=== PATIENT | female | born 1960 | race American Indian/Alaskan Native ===

== ENCOUNTER 2016-05-02 07:29 | Outpatient (CLI) | payer MEDICAID ==
[2016-05-02 08:51] LABS: Blood Urea Nitrogen 9 mg/dL (7-17)
[2016-05-02] MEDS ORDERED: NACL ONE (09:31)
--- NOTE | 2016-05-02 12:39 | Magnetic Resonance Report ---
MRI BRAIN WITH AND WITHOUT CONTRAST INDICATION: Malignant neoplasm of right breast. Headaches. COMPARISON: None similar. FINDINGS: Multiplanar and multisequence MRI of the brain performed before and after 15 ml MultiHance intravenously demonstrate symmetric and normal ventricles and sulci. Mild periventricular and few white matter FLAIR and T2 weighted hyperintensities. No acute infarct, hemorrhage, mass effect or midline shift. No abnormal intra-axial masses or fluid collections. Normal major intracranial vascular flow-voids. No suspicious abnormal enhancement. Number posterior fossa with symmetric 7th and 8th nerve complexes. Preserved basilar cisterns. Normal eye globes. Slight ethmoid sinusitis. Clear remainder imaged paranasal sinuses and mastoid air cells. Partially empty sella. Normal remainder midline appearance without evidence of Chiari malformation. Patchy imaged cervical spine marrow signal. Subtle ventral epidural signal about C4 and C5 as on sagittal series 3, image 10 may represent possible disc herniation, amongst others. Approximately 2 x 1.0 cm adenoids may also be directly visualized. CONCLUSION: 1. No acute intracranial MRI abnormality with age-appropriate atrophy, microvascular changes and few other incidental findings, as above. 2. MR appearance suspicious for cervical spine diffuse metastatic involvement. Further C4-C5 level assessment may also be better achieved with dedicated cervical spine MRI, as warranted. Thank you for the opportunity to participate in this patient's care.
--- NOTE | 2016-05-02 14:23 | Cat Scan Report ---
CT CHEST, ABDOMEN AND PELVIS WITH CONTRAST INDICATION: Malignant neoplasm of right breast. COMPARISON: 01/12/2016. FINDINGS: Chest, abdomen and pelvis CT performed following oral contrast and intravenous administration of 100 cc of Omnipaque 300. CHEST: Stable heart size and great vessels, including mild pulmonary arterial hypertension. Left upper anterior chest wall port tip extending to the right atrium again creates some streak artifact. No pericardial effusion. Approximately 1.4 cm round soft tissue density in the left axilla, axial image 50, series 2 may represent a new lymph node enlargement. No other definite size significant adenopathy. Patent central airway. Unremarkable thyroid. Breast skin thickening again noted, now more appearing bilateral. Mild bibasilar scarring and slight increased AP chest diameter again noted. Small spiculated right lower lobe density medially is stable to slightly smaller at approximately 0.8 cm, axial image 131, series 2, indicating a benign process. Subtle diaphragmatic soft tissue thickening, right more than left as on axial series 2, images 150-180 though appears new/more pronounced, including subtle crescentic 4.2 x 0.7 cm hypodensity posterior to the right hepatic lobe, axial image 160. No significant pleural effusions, though trace right pleural fluid not entirely excluded. Nonspecific distal esophageal wall thickening, not excluded for gastroesophageal reflux and/or hiatal hernia, amongst others. ABDOMEN: At least 2 subtle hepatic new hypodense lesions worrisome for metastases as measuring 4 mm in the right hepatic lobe anteriorly, axial image 247, series 2 and approximately 5 mm in the inferior right hepatic lobe peripherally, image 297, amongst others. Patent veins. Grossly unremarkable remainder liver, spleen, gallbladder, pancreas, adrenals, nonaneurysmal abdominal aorta with few atherosclerotic calcifications and IVC. Non-hydronephrotic kidneys with stable 1.6 cm left upper renal pole cyst. No ascites or size significant adenopathy. Opacified GI tract nonobstructive. Normal appendix. Mild to moderate ascending colon stool/possible constipation. Stable fat containing umbilical hernia with a transverse neck of 1.6 cm as also a supraumbilical containing fat hernia with a neck of 1.4 cm, axial image image 347, series 2. PELVIS: Uterus, adnexa/ovaries and the urinary bladder within normal limits. Mild rectosigmoid stool. No free fluid or size significant adenopathy. Extensive diffuse skeletal metastases again noted as also lower thoracic and upper lumbar superior endplate Schmorl's node/depressions, disc degeneration/vacuum phenomenon at few levels as also few bilateral old healed rib deformities. CONCLUSION: 1. At least 2 subtle hepatic hypodense lesions appear new since January 2016 and worrisome for metastatic involvement, though are sub-cm/indeterminate by CT size criteria. 2. CT appearance of diaphragmatic soft tissue thickening with slight abnormal hypodensity posterior to the right hepatic lobe and possible trace right pleural effusion also suspicious for subtle metastatic involvement, as detailed above. 3. Extensive diffuse skeletal metastases again noted while a left axillary lymph node may be new. No new or suspicious lung masses with small right lower lobe density described previously may be benign as scarring, now stable to slightly smaller. 4. Various other incidental findings, as above. Thank you for the opportunity to participate in this patient's care.
--- NOTE | 2016-05-03 08:44 | Nuclear Medicine Report ---
NUCLEAR MEDICINE WHOLE-BODY BONE SCAN: HISTORY: Right breast cancer. FINDINGS: Compared to the CT chest, abdomen and pelvis dated 05/02/16 and bone scan dated 01/12/16. Diffuse bony metastases are again noted on CT and bone scan. Uptake appears similar to the exam dated 01/12/16. No new areas of activity or pathologic fracture is appreciated. IMPRESSION: No change in the diffuse bony metastases.
== END 2016-05-02 07:30 | disposition home or self-care (01) ==
LOC: MRI 07:29
PROVIDERS: ATTEND Internal Medicine Hematology & Oncology
DX: C50.111 Malignant neoplasm of central portion of right female breast (principal); C50.112 Malignant neoplasm of central portion of left female breast
CPT/HCPCS: 36415; 70553; 71260; 74177; 78306; 82565; 84520; A9503; Q9967

== ENCOUNTER 2016-06-13 10:33 | Outpatient (CLI) | payer MEDICAID | END 2016-06-13 10:34 | disposition home or self-care (01) | LOC: CARD 10:33 | PROVIDERS: ATTEND Nurse Practitioner | DX: R00.0 Tachycardia, unspecified (principal); R00.2 Palpitations; C50.111 Malignant neoplasm of central portion of right female breast; C50.112 Malignant neoplasm of central portion of left female breast; R93.8 Abnormal findings on diagnostic imaging of other specified body structures | CPT/HCPCS: 93005; 93010 ==

== ENCOUNTER 2016-07-18 14:10 | Outpatient (CLI) | payer MEDICAID ==
--- NOTE | 2016-07-18 15:26 | Mammography Report ---
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 COMPARISON:02/24/15 FINDINGS: The breasts are heterogeneously dense, which may obscure small masses. Bilateral retroareolar masses have decreased in size.Previously described right retroareolar mass now measures 6.4 x 4.0 x 5.1 cm compared to 7.4 x 3.8 x 5.0 cm on the last exam. Increased calcifications within the right retroareolar mass. The calcifications have increased in density and are in a ductal distribution. Diffuse punctate calcifications in the left breast have increased. Some are identified within thickened skin of the left breast. Increased bilateral skin thickening, 9 mm on the right and 7 mm on the left. Bilateral enlarged x-ray lymph nodes have resolved. Left central biopsy clip. IMPRESSION: At least a partial response to chemotherapy with resolution of bilateral axillary lymphadenopathy and decreased size and density of bilateral breast masses. Increased bilateral skin thickening. BI-RADS CATEGORY: 6--Status Known Cancer RECOMMENDATION: Clinical followup and repeat mammogram based on clinical findings. ACR BI-RADS MAMMOGRAPHIC CODES: 0 = Needs additional imaging evaluation; 1 = Negative; 2 = Benign; 3 = Probably benign; 4 = Suspicious; 5 = Malignant; 6 = Known biopsy-proven malignancy COMMENT: 1. Dense breast tissue, i.e., adenosis, fibrocystic changes, etc., may obscure an underlying neoplasm. 2. Approximately 10% of cancers are not detected with mammography. 3. A negative mammography report should not delay biopsy if a clinically suspicious mass is present. COMMENT: Patient follow-up letters are generated by our [employer] application.
== END 2016-07-18 14:11 | disposition home or self-care (01) ==
LOC: SPVWC 14:10
PROVIDERS: ATTEND Surgery
DX: C50.911 Malignant neoplasm of unspecified site of right female breast (principal); C50.912 Malignant neoplasm of unspecified site of left female breast
CPT/HCPCS: 77066; G0204

== ENCOUNTER 2016-10-24 07:41 | Outpatient (CLI) | payer MEDICAID ==
[2016-10-24 08:32] LABS: Blood Urea Nitrogen 9 mg/dL (7-17)
[2016-10-24] MEDS ORDERED: NACL ONE (09:51)
[2016-10-24] MEDS ORDERED: FLUSH HEPARIN IV ONE ×2 (10:44→11:03)
--- NOTE | 2016-10-24 12:07 | Cat Scan Report ---
CT scan of chest with IV contrast: History: Breast cancer. Findings: No endobronchial or mediastinal mass. No mediastinal, hilar or axillary adenopathy. No pleural pericardial effusion. No acute consolidation of the lung parenchyma. No mass or nodularity. Impression: No mediastinal mass or adenopathy. No acute lung changes no discrete nodularity.
--- NOTE | 2016-10-24 12:11 | Cat Scan Report ---
CT scan of abdomen and pelvis with IV contrast: History: Breast cancer. Findings: 5 mm hypodensity identified within the liver. No intrahepatic or extrahepatic dilatation. Normal gallbladder pancreas and spleen. Hiatal hernia. Normal adrenals. Circumscribed hypodensity measuring 2 cm in diameter the left kidney probably a cyst. No hydronephrosis. Normal bladder. No free intraperitoneal fluid or air. No evidence of adenopathy. Grossly bowel gas pattern appears unremarkable with stool in colon. Probable fecal impaction rectum. No evidence of appendicitis or diverticulitis. Small umbilical hernia containing fat. Impression: Moderate size hiatal hernia. Hypodensity liver probably a cyst. Hypodensity left kidney probably a cyst. Small umbilical hernia containing fat.
== END 2016-10-24 07:42 | disposition home or self-care (01) ==
LOC: CT 07:41
PROVIDERS: ATTEND Internal Medicine Hematology & Oncology
DX: C50.112 Malignant neoplasm of central portion of left female breast (principal); C50.111 Malignant neoplasm of central portion of right female breast; K42.9 Umbilical hernia without obstruction or gangrene; K44.9 Diaphragmatic hernia without obstruction or gangrene; R93.8 Abnormal findings on diagnostic imaging of other specified body structures; J44.9 Chronic obstructive pulmonary disease, unspecified
CPT/HCPCS: 36415; 71260; 74177; 82565; 84520; J1642; Q9967

== ENCOUNTER 2016-12-04 08:28 | Outpatient (CLI) | payer MEDICAID ==
--- NOTE | 2016-12-06 08:03 | Vascular Lab Report ---
RIGHT UPPER EXTREMITY VENOUS DUPLEX: REASON FOR EXAM: Pain and swelling of the right upper extremity COMMENTS ON THE RIGHT: All arm veins visualized are freely compressible without evidence of internal echogenicity. The subclavian and internal jugular veins are free of thrombus. Flow is spontaneous and phasic throughout. COMMENTS ON THE LEFT: The subclavian and internal jugular veins are free of thrombus. IMPRESSION: No evidence of acute or chronic deep venous thrombosis in the right upper extremity.
== END 2016-12-04 08:29 | disposition home or self-care (01) ==
LOC: VAS 08:28
PROVIDERS: ATTEND Internal Medicine Hematology & Oncology
DX: M79.601 Pain in right arm (principal); M79.89 Other specified soft tissue disorders

== ENCOUNTER 2017-01-22 09:10 | Outpatient (CLI) | payer MEDICAID ==
[2017-01-22 10:11] LABS: Blood Urea Nitrogen 12 mg/dL (7-17)
--- NOTE | 2017-01-22 13:04 | Cat Scan Report ---
FINAL REPORT PROCEDURE: CT ABDOMEN PELVIS W CON TECHNIQUE: Computerized axial tomography of the abdomen and pelvis was performed after the IV injection of iodinated nonionic contrast. Oral contrast was also given. HISTORY: MALIGNANT NEOPLASM OF CENTRAL PORTION OF RIGHT BREAST COMPARISON: None FINDINGS: Visualized lower thorax: Bibasilar subsegmental atelectasis. Liver: Mild fatty infiltration. Spleen: Normal size and attenuation. Gallbladder and biliary system: Normal. Pancreas: Normal. Adrenals: Normal. Kidneys: Normal right kidney. Left renal cysts, the largest of the upper pole 2 x 1.4 centimeters. GI tract: No obstruction. No gross focal bowel abnormality. Normal appendix. Small hiatal hernia. Lymph nodes and mesentery: Normal. Vasculature: Mild atherosclerosis. No abdominal aortic aneurysm. Bladder: Normal. Reproductive organs: Normal. Peritoneum: No free fluid. Musculoskeletal structures: Diffuse osteoporosis. Mild compressions with likely associated Schmorl's nodes of the T9, T10, T12, L1, and L2 vertebral bodies. Healed bilateral rib fractures. Other: Umbilical hernia containing fat. IMPRESSION: Diffuse osteopenia with compression deformities with likely associated Schmorl's nodes of the T9, T10, T12, L1, and L2 vertebral bodies. Healed bilateral rib fractures. Metastatic disease to bone should be evaluated with PET scan or bone scan. Umbilical hernia containing fat. Small hiatal hernia. Mild diffuse fatty infiltration of the liver. Left renal cysts.
--- NOTE | 2017-01-22 13:19 | Cat Scan Report ---
FINAL REPORT PROCEDURE: CT CHEST W CON TECHNIQUE: Consent was obtained. IV contrast was administered and axial sections and post processed reformatted images were viewed through the chest. HISTORY: MALIGNANT NEOPLASM OF CENTRAL PORTION OF RIGHT BREAST COMPARISON: CTA chest 02/21/2016 FINDINGS: Mild fibrotic changes and subsegmental atelectasis is seen bilaterally. Trace pleural fluid is present. The heart is normal in size. Left coronary artery calcifications are present. There is no pericardial effusion. There is no thoracic aortic aneurysm. Prior right breast surgery is noted. Diffuse osteopenia with suspected diffuse metastatic disease is present as well as few stable mild vertebral body compressions. There is no hilar or mediastinal lymphadenopathy. Left chest port is in place. IMPRESSION: Prior right breast surgery. Mild fibrotic changes of the lungs and subsegmental atelectasis bilaterally. Trace bilateral pleural fluid. Left coronary artery calcifications. Diffuse osteopenia with stable vertebral body compressions. Diffuse metastatic disease again suspected.
== END 2017-01-22 09:11 | disposition home or self-care (01) ==
LOC: CT 09:10
PROVIDERS: ATTEND Internal Medicine Hematology & Oncology
DX: C50.111 Malignant neoplasm of central portion of right female breast (principal); C50.112 Malignant neoplasm of central portion of left female breast; J98.11 Atelectasis; I25.10 Atherosclerotic heart disease of native coronary artery without angina pectoris; M85.88 Other specified disorders of bone density and structure, other site; R93.8 Abnormal findings on diagnostic imaging of other specified body structures; K76.0 Fatty (change of) liver, not elsewhere classified; N28.1 Cyst of kidney, acquired; K44.9 Diaphragmatic hernia without obstruction or gangrene; M81.0 Age-related osteoporosis without current pathological fracture; K42.9 Umbilical hernia without obstruction or gangrene; S22.32XD Fracture of one rib, left side, subsequent encounter for fracture with routine healing; S22.31XD Fracture of one rib, right side, subsequent encounter for fracture with routine healing; Z98.890 Other specified postprocedural states; X58.XXXD Exposure to other specified factors, subsequent encounter
CPT/HCPCS: 36415; 71260; 74177; 82565; 84520; Q9967

== ENCOUNTER 2017-04-02 06:53 | Outpatient (CLI) | payer MEDICAID ==
[2017-04-02 07:46] LABS: Blood Urea Nitrogen 16 mg/dL (7-17)
[2017-04-02] MEDS ORDERED: FLUSH HEPARIN IV ONE ×2 (08:42→08:45)
--- NOTE | 2017-04-02 17:12 | Cat Scan Report ---
FINAL REPORT EXAM: CT CHEST W CON HISTORY: MALIGNANT NEOPLASM OF CENTRAL PORTION OF RIGHT FEMALE BREAST TECHNIQUE: Standard enhanced CT of the chest at 1.25 mm axial increments. Coronal and sagittal reconstruction was also obtained. Contrast: IV contrast given PRIORS: CT chest 01/22/2017 FINDINGS: A port catheter is present over the left upper chest wall. Mild linear scarring in each lung base is noted, left greater than right, stable. Otherwise, the lung parenchyma are expanded and clear with no evidence for new parenchymal nodules, infiltrates, vascular congestion, pleural effusion, or pneumothorax. There is no evidence for new mediastinal, hilar, or axillary adenopathy. The esophagus is collapsed but the thickened wall in the distal aspect is not as prominent. The trachea is midline. Cardiovascular structures are within normal limits. Cardiac size and aorta are normal. Images through the lung bases include upper abdomen which demonstrate a low-density stable cyst in the upper pole left kidney. Bony structures show diffuse sclerotic bony metastatic disease, similar to the previous study. No new pathologic fracture seen. Several compression deformities in the thoracolumbar spine are stable. IMPRESSION: 1. Stable exam with no progression of metastatic disease 2. Diffuse bony metastatic disease again noted without pathologic fracture 3. Stable cyst in the left kidney 4. Mildly improved thickening of the distal esophagus 5. Stable linear scarring in the lung bases bilaterally.
== END 2017-04-02 06:54 | disposition home or self-care (01) ==
LOC: CT 06:53
PROVIDERS: ATTEND Internal Medicine Hematology & Oncology
DX: C79.51 Secondary malignant neoplasm of bone (principal); C50.111 Malignant neoplasm of central portion of right female breast; C50.112 Malignant neoplasm of central portion of left female breast; J98.4 Other disorders of lung; N28.1 Cyst of kidney, acquired; M43.8X5 Other specified deforming dorsopathies, thoracolumbar region; R93.8 Abnormal findings on diagnostic imaging of other specified body structures
CPT/HCPCS: 36415; 71260; 82565; 84520; J1642; Q9967

== ENCOUNTER 2017-06-21 07:35 | Emergency (ER) | payer MEDICAID ==
--- NOTE | 2017-06-21 09:16 | XRay Report ---
CHEST XRAY, 2 VIEWS: History: Shortness of breath. Findings: There is mild cardiomegaly. Pulmonary vessels are within normal limits. The lungs are clear and fully expanded. No infiltrate, pleural effusion or pneumothorax. Normal thoracic cage. Left [id number] terminates in the right atrium. IMPRESSION: Mild cardiomegaly.
--- NOTE | 2017-06-21 09:24 | Emergency Department Report ---
ED General Adult HPI - General Chief complaint: Upper Respiratory Infection Stated complaint: FLU LIKE SYMPTOMS Time Seen by Provider: 06/21/17 08:23 Source: patient Mode of arrival: Wheelchair Limitations: No Limitations - History of Present Illness Initial comments: Cough and cold symptoms feels weak for a week off and on. Claritin Didn't Really improve, . Chemotherapy 2 Weeks Ago for Breast CA That She Says Is Localized to the Breast. Evaluatio cough and cold n of for 2 wks, /?dysuria, hx of anemia and breast ca, last chemo 2 wks ago, missed today, no headache no fever no stiff neck no chest pain no focal neural complaints no calfPain or swelling no shortness of breath, no cp -: Gradual, days(s) Associated Symptoms: cough, malaise, weakness. denies: fever/chills, nausea/ vomiting, rash, seizure, shortness of breath, syncope - Related Data Home Medications Medication Instructions Recorded Confirmed Last Taken Hydrochlorothiazide [HCTZ] 25 mg PO QDAY 05/21/15 02/20/16 02/20/16 amLODIPine [Norvasc] 10 mg PO BID 05/21/15 02/20/16 02/20/16 Celecoxib [celeBREX] 100 mg PO DAILY 02/20/16 02/20/16 02/20/16 Letrozole (Nf) [Femara (Nf)] 2.5 mg PO DAILY 02/20/16 02/20/16 02/20/16 Morphine Sulfate [Morphine Sulfate 30 mg PO BID 02/20/16 02/20/16 02/20/16 ER] Palbociclib [Ibrance] 125 mg PO DAILY 02/20/16 02/20/16 02/19/16 Potassium 30 meq PO DAILY 02/20/16 02/20/16 02/20/16 Previous Rx's Medication Instructions Recorded Last Taken Type Ondansetron [Zofran ODT TAB] 8 mg PO Q8HR #20 tab.rapdis 02/21/16 Unknown Rx Sulfamethoxazole/Trimethoprim 1 each PO BID #6 tablet 02/21/16 Unknown Rx [Bactrim DS TAB] Allergies Allergy/AdvReac Type Severity Reaction Status Date / Time No Known Allergies Allergy Verified 02/11/15 18:17 ED Review of Systems ROS: Stated complaint: FLU LIKE SYMPTOMS Other details as noted in HPI Comment: All other systems reviewed and negative Constitutional: malaise, weakness. denies: diaphoresis, fever Respiratory: cough. denies: orthopnea, shortness of breath, SOB with exertion, SOB at rest, stridor, wheezing Cardiovascular: denies: chest pain, palpitations, dyspnea on exertion, orthopnea , syncope, paroxysmal nocturnal dyspnea Gastrointestinal: denies: abdominal pain, nausea, vomiting, diarrhea, constipation, hematemesis, melena, hematochezia Musculoskeletal: denies: joint swelling, arthralgia, myalgia Neurological: denies: headache, weakness (no calf pain or swelling), numbness, paresthesias, confusion, abnormal gait, vertigo ED Past Medical Hx - Past Medical History Previous Medical History?: Yes Hx Hypertension: Yes Hx Congestive Heart Failure: No Hx Diabetes: No Hx Deep Vein Thrombosis: No Hx GERD: Yes (MILD) Hx Renal Disease: No Hx Asthma: No Hx COPD: Yes (was on home oxygen @ 2lpm) Hx HIV: No Additional medical history: gets fluid on her lungs - Surgical History Past Surgical History?: Yes Hx Breast Surgery: Yes (GEORGI. BREAST BX 03/2015) Additional Surgical History: port placed on left side of chest - Social History Smoking Status: Former Smoker Substance Use Type: Prescribed - Medications Home Medications: Home Medications Medication Instructions Recorded Confirmed Last Taken Type Hydrochlorothiazide [HCTZ] 25 mg PO QDAY 05/21/15 02/20/16 02/20/16 History amLODIPine [Norvasc] 10 mg PO BID 05/21/15 02/20/16 02/20/16 History Celecoxib [celeBREX] 100 mg PO DAILY 02/20/16 02/20/16 02/20/16 History Letrozole (Nf) [Femara (Nf)] 2.5 mg PO DAILY 02/20/16 02/20/16 02/20/16 History Morphine Sulfate [Morphine Sulfate 30 mg PO BID 02/20/16 02/20/16 02/20/16 History ER] Palbociclib [Ibrance] 125 mg PO DAILY 02/20/16 02/20/16 02/19/16 History Potassium 30 meq PO DAILY 02/20/16 02/20/16 02/20/16 History Ondansetron [Zofran ODT TAB] 8 mg PO Q8HR #20 tab.rapdis 02/21/16 Unknown Rx Sulfamethoxazole/Trimethoprim 1 each PO BID #6 tablet 02/21/16 Unknown Rx [Bactrim DS TAB] ED Physical Exam - General Limitations: No Limitations General appearance: alert - Head Head exam: Present: atraumatic, normocephalic - Eye Eye exam: Present: PERRL, EOMI - ENT ENT exam: Present: normal exam, normal orophraynx - Neck Neck exam: Present: normal inspection. Absent: tenderness, meningismus - Respiratory Respiratory exam: Present: normal lung sounds bilaterally. Absent: respiratory distress, wheezes, rales, rhonchi, stridor, chest wall tenderness, accessory muscle use, decreased breath sounds, prolonged expiratory - Cardiovascular Cardiovascular Exam: Present: regular rate, normal rhythm - GI/Abdominal GI/Abdominal exam: Present: soft. Absent: tenderness, guarding, rebound, rigid , mass, pulsatile mass - Extremities Exam Extremities exam: Present: normal inspection, normal capillary refill. Absent: pedal edema, joint swelling, calf tenderness - Back Exam Back exam: Present: normal inspection. Absent: CVA tenderness (L), muscle spasm , paraspinal tenderness, vertebral tenderness, rash noted - Neurological Exam Neurological exam: Present: alert, oriented X3, CN II-XII intact. Absent: motor sensory deficit - Psychiatric Psychiatric exam: Present: anxious. Absent: homicidal ideation, suicidal ideation - Skin Skin exam: Present: warm ED Course Vital Signs 06/21/17 07:39 Temperature 98 F Pulse Rate 116 H Respiratory 18 Rate Blood Pressure 142/85 O2 Sat by Pulse 96 Oximetry ED Medical Decision Making - Lab Data Result diagrams: 06/21/17 09:04 06/21/17 08:58 - Radiology Data Radiology results: report reviewed - Medical Decision Making Urinalysis with possible UTI will start Bactrim, symptoms otherwise appear viral in nature chest x-ray is negative she is not immunocompromised, case was discussed with Dr. Shahid will follow patient this week contact patient. Patient does have chronic anemia baseline is around 8.6 hemoglobin stable for outpatient follow-up nontoxic no evidence of sepsis no evidence of other acute emergent process would require further evaluation or admission is noted at this time Critical care attestation.: If time is entered above; I have spent that time in minutes in the direct care of this critically ill patient, excluding procedure time. ED Disposition Clinical Impression: URI (upper respiratory infection), UTI (urinary tract infection) Disposition: TO HOME OR SELFCARE Is pt being admited?: No Condition: Stable Instructions: Urinary Tract Infection in Women (ED), Upper Respiratory Infection (ED) Additional Instructions: Medicine as directed and return if nor alarming symptoms Referrals: PRIMARY CARE, [Primary Care Provider] - 3-5 Days JUAN SHAHID MD [Staff Physician] - 3-5 Days Time of Disposition: 12:30
[2017-06-21 09:30] LABS: Hematocrit 26.9 % (30.3-42.9); Hemoglobin 8.6 gm/dl (10.1-14.3); Mean Corpuscular HGB Conc 32 % (30-34); Mean Corpuscular Hemoglobin 29 pg (28-32); Mean Corpuscular Volume 89 fl (79-97); Platelet Count 269 K/mm3 (140-440); Red Blood Count 3.01 M/mm3 (3.65-5.03)
[2017-06-21 09:41] LABS: Red Cell Distribution Width 25.6 % (13.2-15.2)
[2017-06-21 09:42] LABS: Alanine Aminotransferase 11 units/L (7-56); Albumin 2.7 g/dL (3.9-5); BUN/Creatinine Ratio 15; Blood Urea Nitrogen 15 mg/dL (7-17); Calcium 8.3 mg/dL (8.4-10.2); Hemolysis Index 8
[2017-06-21 10:24] LABS: Bacteria,Urine 1+ /HPF (Negative); Bilirubin,Urine NEG (Negative); Blood,Urine MOD (Negative); Color,Urine Yellow (Yellow); Mucus,Urine FEW /HPF
[2017-06-21 12:04] LABS: Anisocytosis 1+; Basophils % (Manual) 0 % (0.0-1.8); RBC Morphology Normal; Total Cells Counted 100
[2017-06-21] MEDS ORDERED: TYLENOL PO ONE (12:24)
[2017-06-21 12:32] VITALS: BP 142/87
== END 2017-06-21 13:02 | disposition home or self-care (01) ==
LOC: ED 07:35
DX: N39.0 Urinary tract infection, site not specified (principal); J06.9 Acute upper respiratory infection, unspecified; I10 Essential (primary) hypertension
CPT/HCPCS: 36415; 71046; 80053; 81001; 85007; 85025

== ENCOUNTER 2017-08-07 10:08 | Outpatient (CLI) | payer MEDICAID ==
--- NOTE | 2017-08-08 12:01 | Mammography Report ---
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 Status post chemotherapy. COMPARISON:07/18/16 FINDINGS: The breasts are heterogeneously dense, which may obscure small masses. The fibroglandular pattern is stable. Heterogeneous poorly marginated bilateral retroareolar masses are unchanged.No new mass or architectural distortion. Extensive bilateral malignant calcifications. Right retroareolar extensive calcifications have increased and are more linear and branching than those on the left. Many punctate calcifications are dermal, especially on the left. Stable extensive bilateral skin thickening. IMPRESSION: Stable bilateral known breast cancers and stable bilateral skin thickening. No evidence of skin ulceration. Increased calcifications in the right breast may be a treatment effect. BI-RADS CATEGORY: 6--Known Cancer RECOMMENDATION: Routine mammographic screening in one year. ACR BI-RADS MAMMOGRAPHIC CODES: 0 = Needs additional imaging evaluation; 1 = Negative; 2 = Benign; 3 = Probably benign; 4 = Suspicious; 5 = Malignant; 6 = Known biopsy-proven malignancy COMMENT: 1. Dense breast tissue, i.e., adenosis, fibrocystic changes, etc., may obscure an underlying neoplasm. 2. Approximately 10% of cancers are not detected with mammography. 3. A negative mammography report should not delay biopsy if a clinically suspicious mass is present. COMMENT: Patient follow-up letters are generated by our [employer] application.
== END 2017-08-07 10:09 | disposition home or self-care (01) ==
LOC: SPVWC 10:08
PROVIDERS: ATTEND Surgery
DX: C50.112 Malignant neoplasm of central portion of left female breast (principal); J44.9 Chronic obstructive pulmonary disease, unspecified; Z87.891 Personal history of nicotine dependence
CPT/HCPCS: 77066

== ENCOUNTER 2017-09-01 14:18 | Emergency (ER) | payer MEDICAID ==
[2017-09-01 15:16] LABS: Hematocrit 24.2 % (30.3-42.9); Hemoglobin 7.9 gm/dl (10.1-14.3); Mean Corpuscular HGB Conc 33 % (30-34); Mean Corpuscular Hemoglobin 29 pg (28-32); Mean Corpuscular Volume 90 fl (79-97); Platelet Count 150 K/mm3 (140-440)
[2017-09-01 15:24] LABS: Red Cell Distribution Width 22.8 % (13.2-15.2)
[2017-09-01 15:38] LABS: BUN/Creatinine Ratio 17; Blood Urea Nitrogen 19 mg/dL (7-17); Hemolysis Index 7
[2017-09-01 16:15] LABS: Anisocytosis 1+; Band Neutrophils # (Manual) 0.1 K/mm3; Basophils % (Manual) 0 % (0.0-1.8); Eosinophils % (Manual) 0 % (0.0-4.3); Hypochromasia 1+; Ovalocytes Few; Poikilocytosis 1+; Total Cells Counted 100
[2017-09-01 16:16] LABS: Platelet Estimate Consistent w Auto; Schistocytes Rare; Tear Drop Cells 1+
--- NOTE | 2017-09-01 20:18 | Cat Scan Report ---
FINAL REPORT PROCEDURE: CT HEAD/BRAIN WO CON TECHNIQUE: Computerized tomography of the head was performed without contrast material. HISTORY: dizzy, hx breast cancer, new regimen this week COMPARISON: 03/22/2015 FINDINGS: Skull and scalp: Normal. Paranasal sinuses: Normal. Ventricles and subarachnoid spaces: Normal. Cerebrum: There is a 2.7 centimeter area of low density in the right temporal lobe without mass effect suggesting encephalomalacia possibly from old infarct. But stability of edema associated with tumor considered unlikely but correlation with contrast-enhanced CT or MRI may be helpful. There is no hemorrhage. There is no mass effect or midline shift.. Cerebellum and brainstem: No evidence of hemorrhage, acute infarction or mass. Vasculature: Normal. Comments: There is fluid in the left mastoid air cells.. IMPRESSION: There is a 2.7 centimeter area of low density in the right temporal lobe without mass effect suggesting encephalomalacia possibly from old infarct. But stability of edema associated with tumor considered unlikely but correlation with contrast-enhanced CT or MRI may be helpful. There is no hemorrhage. There is no mass effect or midline shift. There is left mastoiditis.
[2017-09-01] MEDS ORDERED: TYLENOL PO ONE ×2 (20:55)
--- NOTE | 2017-09-01 21:27 | XRay Report ---
FINAL REPORT PROCEDURE: XR CHEST 1V AP TECHNIQUE: Chest radiograph anteroposterior view. CPT 47420 HISTORY: light headed, breast ca St. IV COMPARISON: 02/11/2015 FINDINGS: Heart: Normal. Mediastinum/Vessels: Normal. Lungs/Pleural space: Lungs are expanded. There are mild fibrotic changes at the lung bases. There are no active infiltrates. There are no effusions or pneumothoraces.. Bony thorax: No acute osseous abnormality. Life support devices: There is a left-sided Port-A-Cath. The tip is in the superior vena cava.. IMPRESSION: Heart size is normal.. Lungs are expanded. There are mild fibrotic changes at the lung bases. There are no active infiltrates. There are no effusions or pneumothoraces.. There is a left-sided Port-A-Cath. The tip is in the superior vena cava..
[2017-09-01 21:30] VITALS: BP 128/66
--- NOTE | 2017-09-01 22:29 | Emergency Department Report ---
ED Dizziness HPI - General Chief Complaint: Dizziness Stated Complaint: SOB/ VISION PROBLEM Time Seen by Provider: 09/01/17 19:38 Source: patient Mode of arrival: Ambulatory Limitations: No Limitations - History of Present Illness Initial Comments: 57-year-old woman with stage IV breast cancer, left, for past 3 years, has been stable with ongoing oral treatment with Ibrance, but developed a generalized anterior lower chest rash over the past month or so, and physicians thought necessary to change her medicines. She has been getting intravenous chemotherapy since that time, last dose over the past week, and patient has been generally stable, but comes in for evaluation of multiple complaints, which have been chronic and present for weeks to months, including a general sense of positional or orthostatic lightheadedness, with some blurring of vision , and weakness, with decreased appetite and poor intake. She has not had any fever chills or diaphoresis, no cough or congestion, no dysuria, but she had a urinary tract infection and a pneumonia a couple of months ago, is concerned that this may have recurred. She gives a general sense that she does not eat very much, although she does take liquid nutritional supplements, but has no baseline appetite in general, does not eat or drink very much in general. She denies any substantive pain, no nausea or vomiting, no diarrhea. She has no shortness of breath. - Related Data Home Medications Medication Instructions Recorded Confirmed Last Taken Hydrochlorothiazide [HCTZ] 25 mg PO QDAY 05/21/15 02/20/16 02/20/16 amLODIPine [Norvasc] 10 mg PO BID 05/21/15 02/20/16 02/20/16 Celecoxib [celeBREX] 100 mg PO DAILY 02/20/16 02/20/16 02/20/16 Letrozole (Nf) [Femara (Nf)] 2.5 mg PO DAILY 02/20/16 02/20/16 02/20/16 Morphine Sulfate [Morphine Sulfate 30 mg PO BID 02/20/16 02/20/16 02/20/16 ER] Palbociclib [Ibrance] 125 mg PO DAILY 02/20/16 02/20/16 02/19/16 Potassium 30 meq PO DAILY 02/20/16 02/20/16 02/20/16 Previous Rx's Medication Instructions Recorded Last Taken Type Ondansetron [Zofran ODT TAB] 8 mg PO Q8HR #20 tab.rapdis 02/21/16 Unknown Rx Codeine Phosphate/Guaifenesin 10 ml PO QID PRN #150 liquid 06/21/17 Unknown Rx [Guaifenesin-Codeine Syrup] Sulfamethoxazole/Trimethoprim 1 each PO BID #14 tablet 06/21/17 Unknown Rx [Bactrim DS TAB] Allergies Allergy/AdvReac Type Severity Reaction Status Date / Time No Known Allergies Allergy Verified 02/11/15 18:17 ED Review of Systems ROS: Stated complaint: SOB/ VISION PROBLEM Other details as noted in HPI Constitutional: malaise, weakness. denies: chills, diaphoresis, fever ENT: denies: throat pain Respiratory: shortness of breath (dyspnea with exertion, walking across a room) . denies: cough, orthopnea Cardiovascular: denies: chest pain, palpitations Endocrine: denies: excessive sweating Gastrointestinal: denies: abdominal pain, nausea, vomiting, diarrhea, constipation, hematemesis, melena Genitourinary: denies: urgency, dysuria, frequency, hematuria, discharge Musculoskeletal: denies: back pain, myalgia Skin: rash (chronic, lower chest and breasts bilaterally, anteriorly, present for one or 2 months) Neurological: weakness. denies: headache, numbness, paresthesias, confusion, vertigo Psychiatric: denies: anxiety, depression Hematological/Lymphatic: denies: easy bleeding, easy bruising, swollen glands ED Past Medical Hx - Past Medical History Hx Hypertension: Yes Hx Congestive Heart Failure: No Hx Diabetes: No Hx Deep Vein Thrombosis: No Hx GERD: Yes (MILD) Hx Renal Disease: No Hx of Cancer: Yes (breast cancer, stage IV) Hx Asthma: No Hx COPD: Yes (was on home oxygen @ 2lpm) Hx HIV: No Additional medical history: gets fluid on her lungs - Surgical History Hx Breast Surgery: Yes (GEORGI. BREAST BX 03/2015) Additional Surgical History: port placed on left side of chest - Social History Smoking Status: Never Smoker - Medications Home Medications: Home Medications Medication Instructions Recorded Confirmed Last Taken Type Hydrochlorothiazide [HCTZ] 25 mg PO QDAY 05/21/15 02/20/16 02/20/16 History amLODIPine [Norvasc] 10 mg PO BID 05/21/15 02/20/16 02/20/16 History Celecoxib [celeBREX] 100 mg PO DAILY 02/20/16 02/20/16 02/20/16 History Letrozole (Nf) [Femara (Nf)] 2.5 mg PO DAILY 02/20/16 02/20/16 02/20/16 History Morphine Sulfate [Morphine Sulfate 30 mg PO BID 02/20/16 02/20/16 02/20/16 History ER] Palbociclib [Ibrance] 125 mg PO DAILY 02/20/16 02/20/16 02/19/16 History Potassium 30 meq PO DAILY 02/20/16 02/20/16 02/20/16 History Ondansetron [Zofran ODT TAB] 8 mg PO Q8HR #20 tab.rapdis 02/21/16 Unknown Rx Codeine Phosphate/Guaifenesin 10 ml PO QID PRN #150 liquid 06/21/17 Unknown Rx [Guaifenesin-Codeine Syrup] Sulfamethoxazole/Trimethoprim 1 each PO BID #14 tablet 06/21/17 Unknown Rx [Bactrim DS TAB] ED Physical Exam - General Limitations: No Limitations General appearance: alert, in no apparent distress, other (malnourished, not quite overtly cachectic) - Head Head exam: Present: atraumatic, normocephalic - Eye Eye exam: Present: normal appearance, PERRL - ENT ENT exam: Present: mucous membranes dry - Neck Neck exam: Present: normal inspection, full ROM. Absent: tenderness - Respiratory Respiratory exam: Present: normal lung sounds bilaterally, other (marked chronic skin changes with underlying elevated macular rash). Absent: respiratory distress, wheezes, rales - Cardiovascular Cardiovascular Exam: Present: regular rate, normal heart sounds - GI/Abdominal GI/Abdominal exam: Present: soft, normal bowel sounds. Absent: distended, tenderness, guarding - Rectal Rectal exam: Present: deferred - Extremities Exam Extremities exam: Present: normal inspection, full ROM, other (somewhat thinly muscled) - Back Exam Back exam: Present: normal inspection - Neurological Exam Neurological exam: Present: alert, oriented X3, CN II-XII intact, other (fair and equal motor strength in all extremities, no overt weakness, no overt focal neurologic deficit). Absent: motor sensory deficit - Skin Skin exam: Present: dry, rash (significant anterior chest wall rash, lower portion, with chronic raised macular lesions, with chronic skin changes around breast bilaterally) ED Course Vital Signs 09/01/17 09/01/17 09/01/17 14:38 19:57 20:55 Temperature 37.0 C 36.8 C Pulse Rate 118 H 109 H Pulse Rate [ 113 H Lying] Respiratory 16 16 Rate Blood Pressure 124/82 Blood Pressure 120/68 [Left] Blood Pressure 115/55 [Lying] O2 Sat by Pulse 99 98 Oximetry 09/01/17 09/01/17 09/01/17 21:00 21:02 21:16 Temperature Pulse Rate Pulse Rate [ Lying] Respiratory 16 Rate Blood Pressure 118/56 128/66 Blood Pressure [Left] Blood Pressure [Lying] O2 Sat by Pulse 95 96 Oximetry 09/01/17 22:02 Temperature Pulse Rate Pulse Rate [ Lying] Respiratory 16 Rate Blood Pressure Blood Pressure [Left] Blood Pressure [Lying] O2 Sat by Pulse Oximetry - Reevaluation(s) Reevaluation #1: 09/01/17 23:13 Patient is mildly orthostatic with approximately 15 point pulse rate change, and 10 point blood pressure dropped, but blood pressure never dropped below 115 mm systolic. This does cause patient to be symptomatic typical of her presenting complaints. - Consultations Consultation #1: 09/01/17 23:13 Dr. Shahid, patient's oncologist, contacted, discussed abnormal finding on CT scan, as well as patient's chronic complaints, which oncologist is familiar with , and patient's relative neutropenia, but stable anemia, and generally stable lab values and chest x-ray. She was supposed to have an MRI in June, but this was never completed, it is not clear whether it was from authorization approval or where the patient had not completed appointment. Nonetheless, she concurs that patient is stable for discharge, and MRI can be pursued on an outpatient basis, with current focus on increasing nutrition and hydration. ED Medical Decision Making - Lab Data Result diagrams: 09/01/17 14:55 09/01/17 14:55 - Radiology Data Radiology results: report reviewed (MRI shows 2.5 cm right temporal lobe area of low density, possibly encephalomalacia, but could not rule out extension of tumor, and further imaging with contrast recommended.) - Medical Decision Making This chronically ill patient with stage IV breast cancer, currently under chemotherapy treatment, is orthostatic and dehydrated, which is the approximate cause of patient's immediate complaints. CT scan was performed for possibility of metastasis, and a 2.5 cm lesion was identified in the right temporal lobe, which cannot exclude metastasis, the patient is otherwise stable for discharge, and patient's findings were discussed with her oncologist. She was to have prior MRI, but this was never completed, and this will likely be her next step, but this can also be arranged on an outpatient basis. Rehydration with electrolyte which fluids as well as increased nourishment will be recommended for patient, but otherwise she can follow with physician at the end of this week , when she has a regularly scheduled appointment. - Differential Diagnosis dehydration, urinary tract infection, pneumonia. metastasis Critical Care Time: No Critical care attestation.: If time is entered above; I have spent that time in minutes in the direct care of this critically ill patient, excluding procedure time. ED Disposition Clinical Impression: Orthostatic hypotension, Breast cancer metastasized to bone, Dehydration Disposition: DC-01 TO HOME OR SELFCARE Is pt being admited?: No Does the pt Need Aspirin: No Condition: Stable Instructions: Dehydration (ED) Additional Instructions: Your symptoms causing U to seek emergency department treatment today are secondary to a chronic dehydration, and generally poor nutrition as a result of the difficulty U have had with eating, and lack of general appetite. There are no major changes on blood work today, although U have multiple chronic conditions, including a significant anemia, but which does not require transfusion today. White count is a little low today, but this is likely result of your recent chemotherapy. Chest x-ray is clear and there is no signs of pneumonia. Urinalysis is also normal and there are no findings of urinary infection. We did find a new abnormality on the CT scan, but it is not clear whether it is an old finding or a result of your tumor process or cancer. We have talked with her doctor, Dr. Shahid, and we both feel that it is safe for you to go home, and this can be further evaluated with an MRI, which can be arranged through the office, as she will have to go through the preapproval process in her to have this scheduled. Your symptoms of lightheadedness and dizziness and blurriness of vision or result of dehydration, particularly when you change positions or stand up, and this can be Corrected by drinking plenty of electrolyte rich fluids such as Pedialyte, moderate calorie sport drinks, or soups or broth. Continue your supplemental nutrition, such as boost, but also make an effort to eat healthy nursing foods, as this is the best option for help and you to gain weight and to maintain stamina and nutrition. You have an appointment on September 06 with your doctor, and your stable to follow with this appointment at that time. Referrals: KRYS HEBERT MD [Primary Care Provider] - 3-5 Days Time of Disposition: 22:29
== END 2017-09-01 22:40 | disposition home or self-care (01) ==
LOC: ED 14:18
DX: C50.912 Malignant neoplasm of unspecified site of left female breast (principal); C79.51 Secondary malignant neoplasm of bone; I95.1 Orthostatic hypotension; E86.0 Dehydration; I10 Essential (primary) hypertension; K21.9 Gastro-esophageal reflux disease without esophagitis
CPT/HCPCS: 36415; 70450; 71045; 80048; 85007; 85025

== ENCOUNTER 2017-09-11 15:24 | Outpatient (CLI) | payer MEDICARE ==
--- NOTE | 2017-09-11 20:30 | Magnetic Resonance Report ---
FINAL REPORT PROCEDURE: MRI brain without contrast. TECHNIQUE: Magnetic resonance imaging of the brain was performed without contrast material. HISTORY: Vision changes. COMPARISON: CT head 09/01/2017. FINDINGS: The ventricles are normal in size. There is some slightly increased T2 and FLAIR signal intensity within the subcortical and deep white matter of the right temporal lobe. This is located anteriorly. I do not detect any mass effect. There is no hemorrhage. My suspicion that this represents metastatic disease is low. It could represent chronic microvascular ischemic change or other early white matter disease processes. An MRI scan with contrast enhancement is the best means of excluding a tiny mass lesion. The remainder of the brain appears normal. There is no evidence of restricted diffusion. The paranasal sinuses are clear. There is extensive left mastoiditis. IMPRESSION: Subtle white matter disease involving the right anterior temporal lobe as discussed above. Extensive left mastoiditis.
== END 2017-09-11 15:25 | disposition home or self-care (01) ==
LOC: MRI 15:24
PROVIDERS: ATTEND Internal Medicine Hematology & Oncology
DX: C50.111 Malignant neoplasm of central portion of right female breast (principal); C50.112 Malignant neoplasm of central portion of left female breast; H70.92 Unspecified mastoiditis, left ear
CPT/HCPCS: 70551

== ENCOUNTER 2017-09-19 14:56 | Outpatient (CLI) | payer MEDICARE | END 2017-09-19 14:57 | disposition home or self-care (01) | LOC: LABHHL 14:56 | PROVIDERS: ATTEND Surgery | DX: C50.911 Malignant neoplasm of unspecified site of right female breast (principal); C79.51 Secondary malignant neoplasm of bone; I10 Essential (primary) hypertension; J44.9 Chronic obstructive pulmonary disease, unspecified; D64.9 Anemia, unspecified; I73.9 Peripheral vascular disease, unspecified | CPT/HCPCS: 88305; 88342; 88361 ==